=== PATIENT | male | born 1995 | race Two or more races ===

== ENCOUNTER 2023-11-29 10:35 | Emergency (ER) | payer BC ==
[~2023-11-29] VITALS: Ht 185.4 cm; Wt 161.0 kg
[2023-11-29 11:56] VITALS: BP 132/86; PULSE 79; RESP 16; TEMP 98.5; O2SAT 99
[2023-11-29] MEDS: ACETAMINOPHEN 500 MG TAB PO ONE (12:50)
[2023-11-29] MEDS: cefTRIAXone SOD 1,000 MG VL IM ONE (12:50)
[2023-11-29] MEDS ORDERED: PRED20TA2 PO (13:00)
[2023-11-29] MEDS ORDERED: IBUP-1456 PO (13:00)
[2023-11-29] MEDS ORDERED: AZIT500T66 PO (13:00)
== END 2023-11-29 13:11 | disposition home or self-care (01) ==
LOC: ER 10:35
DX: H66.93 Otitis media, unspecified, bilateral (principal); J03.90 Acute tonsillitis, unspecified; Z79.1 Long term (current) use of non-steroidal anti-inflammatories (NSAID); Z79.2 Long term (current) use of antibiotics; Z79.899 Other long term (current) drug therapy
CPT/HCPCS: 96372; 99283; J0696